=== PATIENT | female | born 1995 | race Caucasian/White ===

== ENCOUNTER 2022-01-06 21:39 | Emergency (ER) | payer OTHER ==
[~2022-01-06] VITALS: Ht 162.6 cm; Wt 61.2 kg
--- NOTE | 2022-01-06 22:30 | NUR ---
PATIENT WALKED INTO ER C/O ABDOMINAL PAIN WITH 6 EPISODE OF N/V AND 2 EPISODE OF DIARRHEA THAT STARTED THIS AM.
--- NOTE | 2022-01-06 23:01 | NUR ---
Dr. Baker at bedside for MSE.
[2022-01-06] MEDS ORDERED: ONDANSETRON 4 MG/2 ML VIAL ONE (23:09)
[2022-01-06] MEDS ORDERED: IV LACTATED RINGERS SOLUTION 1,000 ML IV ONE (23:15)
[2022-01-06] MEDS ORDERED: ONDANSETRON 4 MG/2 ML VIAL IV ONE (23:15)
[2022-01-06 23:17] LABS: HEMATOCRIT 38.6 % (31.2-41.9); MEAN CORPUSCULAR HEMOGLOBIN 31.1 uug (24.7-32.8); MEAN CORPUSCULAR VOLUME 92.2 fL (75.5-95.3); PLATELET COUNT (AUTO) 306 K/uL (179-408)
[2022-01-06 23:23] LABS: *URINE HCG, QUAL NEGATIVE (NEGATIVE)
[2022-01-06] MEDS ORDERED: HYDROMORPHONE 1 MG/1 ML DISP.SYRIN IV ONE (23:30)
[2022-01-06] MEDS ORDERED: DICYCLOMINE HCL LIQ 10 MG/5 ML UDC PO ONE (23:30)
[2022-01-06] MEDS ORDERED: DICYCLOMINE HCL LIQ 10 MG/5 ML UDC ONE (23:37)
[2022-01-06] MEDS ORDERED: HYDROMORPHONE 1 MG/1 ML DISP.SYRIN ONE (23:37)
[2022-01-06 23:44] LABS: BILIRUBIN,DIRECT 0.1 mg/dL (0.0-0.2); BILIRUBIN,TOTAL 0.4 mg/dL (0.2-1.0); CREATININE 0.8 mg/dL (0.6-1.3); POTASSIUM 4.1 mmol/L (3.5-5.1); TOTAL PROTEIN, SERUM 7.5 g/dL (6.4-8.2)
[2022-01-07] MEDS ORDERED: ONDA4TAB5 PO ×3 (00:25→00:33)
[2022-01-07] MEDS ORDERED: HYDR-4209 PO ×2 (00:25→00:27)
[2022-01-07] MEDS ORDERED: TRAM50TA2 PO ×2 (00:33)
--- NOTE | 2022-01-07 00:40 | NUR ---
IV removed. Catheter intact and site benign. Pressure and 4x4 gauze applied to site. No bleeding noted.
[2022-01-07 00:43] VITALS: BP 140/66
--- NOTE | 2022-01-07 00:44 | NUR ---
Patient discharged to home in stable condition WITH PATIENT'S MOTHER TAKING HER HOME. Written and verbal after care instructions given. Patient verbalizes understanding of instructions. Stressed follow up or return to ER for worsening s/s.
[2022-01-09] MEDS ORDERED: HYDR-4209 PO (16:38)
[2022-01-09] MEDS ORDERED: CEPH500C2 PO (16:38)
== END 2022-01-07 00:44 | disposition home or self-care (01) ==
LOC: ER 21:51
DX: R11.2 Nausea with vomiting, unspecified (principal); R10.10 Upper abdominal pain, unspecified; R19.7 Diarrhea, unspecified; Z20.822 Contact with and (suspected) exposure to COVID-19; Z28.310 Unvaccinated for COVID-19; R03.0 Elevated blood-pressure reading, without diagnosis of hypertension
CPT/HCPCS: 99284; 96374; 96361; 96375; 87426; 80076; 80048; 84703; 83690; 85025; 36415; J2405; J1170; J7120; A4663

== ENCOUNTER 2022-01-07 08:21 | Inpatient (IN) | payer OTHER ==
[~2022-01-07] VITALS: Ht 162.6 cm; Wt 61.2 kg
[~2022-01-07 08:21] MED LIST: HYDR-4209 PO; ONDA4TAB5 PO; TRAM50TA2 PO
[2022-01-07] MEDS ORDERED: IV NORMAL SALINE 1000 ML BAG IV ONE (08:30)
[2022-01-07 08:51] LABS: HEMATOCRIT 39.3 % (31.2-41.9); MEAN CORPUSCULAR HEMOGLOBIN 31.3 uug (24.7-32.8); MEAN CORPUSCULAR VOLUME 92.6 fL (75.5-95.3); PLATELET COUNT (AUTO) 316 K/uL (179-408)
[2022-01-07 08:54] LABS: *BILIRUBIN,URIN NEGATIVE (NEGATIVE); *BLOOD, URINE NEGATIVE (NEGATIVE); *CLARITY,URINE SLIGHTLY CLOUDY (CLEAR); *COLOR,URINE YELLOW (YELLOW); *KETONES,URINE NEGATIVE (NEGATIVE); *UROBILINOGEN,URINE 0.2 E.U./dl (NORMAL); LEUKOCYTE ESTERASE ,URINE NEGATIVE (NEGATIVE); NITRITE, URINE NEGATIVE (NEGATIVE); PH,URINE 7.5 (5.0-8.0); UGLUCOSE NEGATIVE (NEGATIVE)
[2022-01-07 08:56] LABS: CREATININE 0.9 mg/dL (0.6-1.3); POTASSIUM 3.9 mmol/L (3.5-5.1)
[2022-01-07 08:56] LABS: *URINE HCG, QUAL NEGATIVE (NEGATIVE)
[2022-01-07 09:01] LABS: BILIRUBIN,DIRECT 0.1 mg/dL (0.0-0.2); BILIRUBIN,TOTAL 0.7 mg/dL (0.2-1.0); TOTAL PROTEIN, SERUM 7.1 g/dL (6.4-8.2)
[2022-01-07] MEDS ORDERED: PIPERACILLIN SODIUM/TAZOBACTAM 3.375 G in IV DEXTROSE 5% 50 ML IV ONE (10:30)
[2022-01-07] MEDS ORDERED: MORPHINE SULFATE 2 MG/1 ML DISP.SYRIN IV ONE (10:30)
[2022-01-07] MEDS ORDERED: ONDANSETRON 4 MG/2 ML VIAL IV ONE ×2 (10:30→19:13)
[2022-01-07] MEDS ORDERED: MORPHINE SULFATE 4 MG/1 ML DISP.SYRIN ONE (10:37)
[2022-01-07] MEDS ORDERED: ONDANSETRON 4 MG/2 ML VIAL ONE (10:37)
[2022-01-07] MEDS ORDERED: PIPERACILLIN/TAZOBACTAM/D5W 50 ML IV ONE (10:37)
[2022-01-07 11:00] LABS: RBC,URINE NONE SEEN /HPF (0-3); WBC,URINE 0-3 /HPF (0-3)
[2022-01-07 11:01] LABS: BACTERIA,URINE FEW /HPF (NONE SEEN); SQUAMOUS EPITHELIAL CELL,UR FEW /HPF (NONE SEEN)
[2022-01-07] MEDS ORDERED: ACETAMINOPHEN 650 MG SUPP.RECT RC PRN (11:30)
[2022-01-07] MEDS ORDERED: ONDANSETRON 4 MG/2 ML VIAL IV PRN (11:30)
--- NOTE | 2022-01-07 13:00 | NUR ---
RECEIVED PATIENT 26 YEARS OLD FEMALE FROM ED BY W/CHAIR TO ROOM 301 BED B WITH DX OF APPENDICITIS ASSISTED INTO BED FIXED AND MADE COMFORTABLE PATIENT IS ALERT AND ORIENTED MOTHER AT THE BEDSIDE ORIENTED TO ROOM AND FACILITY PROTOCOL MADE COMFORTABLE WILL CONTINUE TO OBSERVE.
[2022-01-07] MEDS: IV D5/ 0.9% NACL 1,000 ML IV PRN (13:23)
[2022-01-07] MEDS: MORPHINE SULFATE 2 MG/1 ML DISP.SYRIN IV PRN (13:26)
--- NOTE | 2022-01-07 13:45 | NUR ---
PER THE ED RN DR NAVARRO WILL BE HERE TO DO SURGERY ON THIS PATIENT WITH ORDER TO OBTAIN CONSCENT SURGERY THIS AFTERNOON ABOUT 1530 AND NOTED
[2022-01-07] MEDS ORDERED: BUPIVACAINE/EPI PF 0.25% 10 ML VIAL IJ ONE (14:29)
[2022-01-07 14:51] VITALS: BP 102/54
[2022-01-07 15:00] VITALS: BP 102/54
--- NOTE | 2022-01-07 15:05 | NUR ---
PATIENT PICKED UP TO THE BASEMENT FOR THE APPENDECTOMY ORDERED.MOM AT THE BEDSIDE AND FOLLOWED.
[2022-01-07] MEDS ORDERED: MIDAZOLAM HCL 2 MG/2 ML VIAL ONE (15:08)
[2022-01-07] MEDS ORDERED: FAMOTIDINE. 20 MG/2 ML VIAL IV ONE (15:08)
[2022-01-07] MEDS ORDERED: FENTANYL CITRATE 100 MCG/2 ML AMPUL ONE (15:08)
[2022-01-07] MEDS ORDERED: ROCURONIUM BROMIDE 50 MG/5 ML VIAL ONE (15:09)
[2022-01-07] MEDS ORDERED: SEVOFLURANE 250 ML BOTTLE ONE (15:54)
[2022-01-07] MEDS ORDERED: CEFAZOLIN 1 G VIAL ONE (16:04)
[2022-01-07] MEDS ORDERED: PIPERACILLIN SODIUM/TAZOBACTAM 3.375 G in IV DEXTROSE 5% 50 ML IV SCH (18:00)
--- NOTE | 2022-01-07 18:00 | NUR ---
PATIENT RETURNED TO THE FLOOR TO ROOM 301 BED B AWAKE ALERT AND ORIENTED ON ROOM AIR WITH NO SHORTNESS OF BREATH ABDOMEN WITH 3 SCOPE SITES WITH NO DRAINAGE AT THIS TIME.WILL CONTINUE TO OBSERVE
[2022-01-07] MEDS: PIPERACILLIN SODIUM/TAZOBACTAM 3.375 G in IV DEXTROSE 5% 100 ML IV SCH (18:18)
[2022-01-07 18:23] VITALS: BP 94/40
--- NOTE | 2022-01-07 18:30 | NUR ---
BLOOD PRESSURE AT THIS TIME IS 91/39 ASSYMPTOMATIC TEMP IS 99.[address] GAVIN WITH NO NEW ORDERS AT THIS TIME.
--- NOTE | 2022-01-07 18:47 | NUR ---
DR GATES RETURNED CALL WITH NEW ORDERS.
[2022-01-07] MEDS ORDERED: IV NORMAL SALINE 500 ML IV ONE (19:00)
[2022-01-07] MEDS ORDERED: SEVOFLURANE 250 ML BOTTLE IH ONE (19:13)
[2022-01-07] MEDS ORDERED: DEXAMETHASONE SOD PHOSPHATE 4 MG INJ IV ONE (19:13)
[2022-01-07] MEDS ORDERED: METOCLOPRAMIDE HCL 10 MG/2 ML VIAL IV ONE (19:13)
[2022-01-07] MEDS ORDERED: NEOSTIGMINE METHYLSULFATE 10 MG/10 ML VIAL IM ONE (19:13)
[2022-01-07] MEDS ORDERED: LIDOCAINE-MPF 2% 5 ML VIAL IJ ONE (19:13)
[2022-01-07] MEDS ORDERED: CEFAZOLIN 1 G VIAL IM ONE (19:13)
[2022-01-07] MEDS ORDERED: PROPOFOL 200 MG/20 ML BOTTLE IV ONE (19:13)
[2022-01-07] MEDS ORDERED: GLYCOPYRROLATE 0.2 MG/ML VIAL IJ ONE (19:13)
[2022-01-07 20:00] VITALS: BP 96/50
[2022-01-07] MEDS ORDERED: FAMOTIDINE. 20 MG/2 ML VIAL IV SCH (21:00)
[2022-01-07] MEDS: HYDROCODONE/APAP 5-325MG TABLET PO PRN (23:01)
[2022-01-08] MEDS: PIPERACILLIN SODIUM/TAZOBACTAM 3.375 G in IV DEXTROSE 5% 100 ML IV SCH ×3 (02:38→17:21)
[2022-01-08] MEDS: HYDROCODONE/APAP 5-325MG TABLET PO PRN ×2 (03:25→20:55)
[2022-01-08] MEDS: IV D5/ 0.9% NACL 1,000 ML IV PRN ×2 (03:45→18:28)
[2022-01-08 04:32] VITALS: BP 86/43
[2022-01-08 06:29] LABS: HEMATOCRIT 30.5 % (31.2-41.9); MEAN CORPUSCULAR HEMOGLOBIN 32.7 uug (24.7-32.8); MEAN CORPUSCULAR VOLUME 92.6 fL (75.5-95.3); PLATELET COUNT (AUTO) 231 K/uL (179-408)
--- NOTE | 2022-01-08 06:48 | NUR ---
Patient slept intermittently, c/o of abdominal pain /, given [place] with helped. Still noted with low BP 83/45, asymptomatic, no c/o headache or dizziness. Encouraged to use incentive spirometer. Voiding freely without discomfort. Needs assessed and attended to. Call light within easy reach.
[2022-01-08 07:12] LABS: BILIRUBIN,TOTAL 0.5 mg/dL (0.2-1.0); CREATININE 0.7 mg/dL (0.6-1.3); MAGNESIUM 1.8 mg/dL (1.8-2.4); PHOSPHOROUS 3.1 mg/dL (2.5-4.9); POTASSIUM 3.4 mmol/L (3.5-5.1); TOTAL PROTEIN, SERUM 5.6 g/dL (6.4-8.2)
--- NOTE | 2022-01-08 08:00 | NUR ---
resting in bed, informed of plan of care- verbalized understanding, anxious to move around because of pain on surgical site- explained the importance of ambulation and IS post op- denies of nausea- ordered regular diet for breakfast, call light within reach
[2022-01-08] MEDS: PANTOPRAZOLE SODIUM 40 MG VIAL IV SCH (08:37)
--- NOTE | 2022-01-08 09:45 | NUR ---
c/o of pain -refused [place]- states doesnt help with pain, will check BP and informed - 104/53- Dr Richardson informed and okay to give Morphine 2mg IV
[2022-01-08] MEDS: MORPHINE SULFATE 2 MG/1 ML DISP.SYRIN IV PRN (10:12)
[2022-01-08] MEDS: POTASSIUM CHLORIDE 50 ML IV SCH ×2 (10:43→12:10)
--- NOTE | 2022-01-08 10:45 | NUR ---
denies of any dizziness, assisted to sit up first and dangle at bedside and slowly got up and ambulated at the end of the bede- tolerated fairly, am care done, mom at bedside
--- NOTE | 2022-01-08 11:20 | NUR ---
seen by Dr Richardson and spoke to family at bedside-with orders- carried out
[2022-01-08] MEDS ORDERED: IV NORMAL SALINE 500 ML IV ONE (11:30)
[2022-01-08 11:45] VITALS: BP 94/57
[2022-01-08 12:20] VITALS: BP 100/52
[2022-01-08] MEDS: HYDROMORPHONE 1 MG/1 ML DISP.SYRIN IV PRN ×2 (13:23→17:21)
--- NOTE | 2022-01-08 14:50 | NUR ---
states still has pain 07/19- informed Dr Richardson- mother at bedside- pt resting in bed watching TV
--- NOTE | 2022-01-08 15:00 | NUR ---
pain lesser at this time, assisted to BR and voided qs and also passed gas but no BM
[2022-01-08 15:45] VITALS: BP 109/65
--- NOTE | 2022-01-08 17:00 | NUR ---
has a temp 101.5 orally, cooling measures done, Tylenol 650 mg po given as ordered, Dr Ag informed, also called Dr Hillman and informed of passing gas and ambulated to BR but has fever of 101.5- order for CBC in am and continue with IV abx
[2022-01-08] MEDS: ACETAMINOPHEN 325 MG TABLET PO PRN ×2 (17:20→23:04)
--- NOTE | 2022-01-08 17:30 | NUR ---
Dr Richardson in and talked to pt and pt's mother extensively.
[2022-01-08 20:00] VITALS: BP 132/56
[2022-01-09] MEDS: PIPERACILLIN SODIUM/TAZOBACTAM 3.375 G in IV DEXTROSE 5% 100 ML IV SCH ×2 (02:13→09:12)
[2022-01-09 04:00] VITALS: BP 101/52
--- NOTE | 2022-01-09 06:11 | NUR ---
Patient C/o pain earlier in shift Medicated with Narco Tab 1 with good effect, Tylenol 650 Mg given for temp 100.7 Ice packs applied toaxilla and forehead. Recheck Temp (99
--- NOTE | 2022-01-09 06:49 | NUR ---
IVF off Pt tolerating PO For possible Discharge Today afebrile.
[2022-01-09] MEDS ORDERED: HYDROMORPHONE 1 MG/1 ML DISP.SYRIN IV PRN (06:54)
[2022-01-09 07:00] LABS: HEMATOCRIT 31.4 % (31.2-41.9); MEAN CORPUSCULAR HEMOGLOBIN 31.9 uug (24.7-32.8); MEAN CORPUSCULAR VOLUME 92.3 fL (75.5-95.3); PLATELET COUNT (AUTO) 216 K/uL (179-408)
[2022-01-09 07:23] LABS: BILIRUBIN,TOTAL 0.4 mg/dL (0.2-1.0); CREATININE 0.7 mg/dL (0.6-1.3); MAGNESIUM 1.8 mg/dL (1.8-2.4); PHOSPHOROUS 3.4 mg/dL (2.5-4.9); POTASSIUM 3.5 mmol/L (3.5-5.1)
[2022-01-09] MEDS: PANTOPRAZOLE SODIUM 40 MG VIAL IV SCH (08:19)
[2022-01-09 11:40] VITALS: BP 115/58
[2022-01-09] MEDS ORDERED: POTASSIUM CHLORIDE 20 MEQ TAB.PRT.SR PO ONE (12:00)
[2022-01-09] MEDS: ACETAMINOPHEN 325 MG TABLET PO PRN (12:40)
[2022-01-09 15:47] VITALS: BP 100/52
[2022-01-09] MEDS ORDERED: HYDR-4209 PO (16:38)
[2022-01-09] MEDS ORDERED: CEPH500C2 PO (16:38)
--- NOTE | 2022-01-09 17:30 | NUR ---
Pt. discharged home and picked up by her mother. Noted Pt. to be stable upon the discharge and no c/o pain noted. personal belonging returned to pt.
== END 2022-01-09 17:30 | disposition home or self-care (01) | DRG 710 ==
LOC: ER 08:21 → MEDSURG3 12:57
PROVIDERS: ADMIT Internal Medicine; ATTEND Internal Medicine
PROC: 0DTJ4ZZ Resection of Appendix, Percutaneous Endoscopic Approach (ICD-10-PCS; principal; 2022-01-07)
DX: A41.9 Sepsis, unspecified organism (principal); K35.31 Acute appendicitis with localized peritonitis and gangrene, without perforation; D64.9 Anemia, unspecified; E86.0 Dehydration
CPT/HCPCS: 36415; 83690; 83735; 84100; 84703; 85025; 87040; A4663; C9113; G0378; J0690; J1100; J1170; J2250; J2270; J2405; J2543; J2765; J3010; J3480; J3490; J7040; J7042; L8699